=== PATIENT | male | born 1995 ===

== ENCOUNTER 2017-11-06 08:00 | Emergency (ER) | payer OTHER ==
[2017-11-06 08:18] VITALS: BP 104/71; PULSE 70; RESP 18; TEMP 98; O2SAT 98
[2017-11-06] MEDS ORDERED: Phenylephrine 0.5% Nasal Spray NAS PRN (08:47)
--- NOTE | 2017-11-06 09:03 | ED PDOC ---
HPI: Nose Bleed Time Seen by Provider: 11/06/17 08:42 Chief Complaint (Nursing): ENT Problem Chief Complaint (Provider): Nose bleed History Per: Patient History/Exam Limitations: no limitations Onset/Duration Of Symptoms: Hrs (this morning) Location Of Bleeding: Right Nare Associated Symptoms: Other (right sided headache) Additional Complaint(s): Boston Wise is a 22 year old male, with no significant past medical history, who presents to the emergency department complaining of right sided nose bleed onset since this morning. Patient is also complaining of right sided headache. He denies any trauma, dizziness, LOC, or weakness. No further medical complaints. PMD: None provided. Past Medical History Reviewed: Historical Data, Nursing Documentation, Vital Signs Vital Signs: Last Vital Signs Temp 98 F 11/06/17 08:16 Pulse 70 11/06/17 08:16 Resp 18 11/06/17 08:16 BP 104/71 11/06/17 08:16 Pulse Ox 98 11/06/17 08:16 - Medical History PMH: No Chronic Diseases - Surgical History Surgical History: No Surg Hx - Family History Family History: States: Unknown Family Hx - Allergies Allergies/Adverse Reactions: Allergies Allergy/AdvReac Type Severity Reaction Status Date / Time No Known Allergies Allergy Verified 11/06/17 08:16 Review of Systems ROS Statement: Except As Marked, All Systems Reviewed And Found Negative ENT: Positive for: Other (Right nare nose bleed) Neurological: Positive for: Headache (right sided). Negative for: Weakness, Dizziness Physical Exam - Reviewed Nursing Documentation Reviewed: Yes Vital Signs Reviewed: Yes - Physical Exam Appears: Positive for: Well, Non-toxic, No Acute Distress Head Exam: Positive for: ATRAUMATIC, NORMAL INSPECTION, NORMOCEPHALIC Skin: Positive for: Normal Color (No ecchymosis, no petechiae), Warm, Dry Eye Exam: Positive for: Normal appearance, EOMI, PERRL ENT: Positive for: Other (Dry blood on right nare. No active bleeding, no hematoma, no sinus tenderness). Negative for: Sinus Pain/Drainage Neck: Positive for: Painless ROM, Supple Respiratory: Negative for: Respiratory Distress Extremity: Positive for: Normal ROM. Negative for: Deformity, Swelling Neurologic/Psych: Positive for: Alert, Oriented (x3). Negative for: Other (no focal deficits. ) - ECG O2 Sat by Pulse Oximetry: 98 (RA) Pulse Ox Interpretation: Normal - Progress Re-evaluation Time: 09:46 Condition: Improved (No bleeding) Medical Decision Making Medical Decision Making: Initial Plan: --Guillermo-Synephrine 0.5% Nasal Jackson 1 spry LOUIE Q4 --reevaluation Scribe Attestation: Documented by Vasquez Arroyo, acting as a scribe for José Cohen MD Provider Scribe Attestation: All medical record entries made by the Scribe were at my direction and personally dictated by me. I have reviewed the chart and agree that the record accurately reflects my personal performance of the history, physical exam, medical decision making, and the department course for this patient. I have also personally directed, reviewed, and agree with the discharge instructions and disposition. Disposition - Clinical Impression Clinical Impression: Anterior epistaxis - Patient ED Disposition Is Patient to be Admitted: No - Disposition Referrals: Oral Mazariegos MD [Staff Provider] - Disposition: Routine/Home Disposition Time: 09:47 Condition: FAIR Instructions: Nosebleed (ED) Forms: [facility] (Albanian) Print Language: CYMRAES
== END 2017-11-06 10:05 | disposition home or self-care (01) ==
LOC: H.ER 08:00
DX: R04.0 Epistaxis (principal)